=== PATIENT | male | born 1980 | race Caucasian/White ===

== ENCOUNTER 2025-06-04 21:50 | Inpatient (IN) | payer OTHER ==
[~2025-06-04] VITALS: Ht 175.3 cm; Wt 122.0 kg
[2025-06-04 23:06] LABS: PLATELET COUNT (AUTO) 266 K/uL (150-450); RED BLOOD CELL COUNT(AUTO) 3.67 MIL/uL (4.50-5.90); RED CELL DISTRIBUTION WIDTH 15.3 % (11.5-14.5); WHITE BLOOD COUNT (AUTO) 10.7 K/uL (4.5-11.0)
[2025-06-04] MEDS ORDERED: ONDANSETRON HCL 4 MG/2 ML VIAL IVP PRN (23:15)
[2025-06-04 23:16] LABS: CALCIUM, TOTAL 8.5 mg/dL (8.8-10.5); CREATININE 6.01 mg/dL (0.60-1.30); GLOMERULAR FILTR. RATE CALC 10 mL/min (>60); GLUCOSE,RANDOM 92 mg/dL (70-110); SODIUM SERUM 138 mmol/L (136-145); UREA NITROGEN, BLOOD 52 mg/dL (7-18)
[2025-06-04 23:21] LABS: CREATINE KINASE, TOTAL ONLY 187 U/L (39-308)
[2025-06-04 23:25] LABS: TROPONIN I-HIGH SENSITIVITY 51 ng/L (<76)
[2025-06-04] MEDS: METOPROLOL TARTRATE 25 MG TABLET PO SCH (23:41)
[2025-06-05] MEDS: HEPARIN SODIUM,PORCINE 5,000 UNITS/ML VIAL SQ SCH
[2025-06-05 04:15] LABS: APPEARANCE,URINE CLEAR (CLEAR); GLUCOSE, URINE (UA) NEGATIVE (NEGATIVE); LEUKOCYTE ESTERASE ,URINE TRACE (NEGATIVE); NITRATE,URINE NEGATIVE (NEGATIVE); OCCULT BLOOD,URINE SMALL (NEGATIVE); SPECIFIC GRAVITIY, URINE 1.013 (1.003-1.030)
[2025-06-05 04:16] LABS: SULFOSALICYLIC ACID,URINE 2+ (Negative)
[2025-06-05 04:17] LABS: SQUAMOUS EPITHELIAL CELL,UR Few /LPF (None Seen)
[2025-06-05 05:38] LABS: PLATELET COUNT (AUTO) 249 K/uL (150-450); RED BLOOD CELL COUNT(AUTO) 3.45 MIL/uL (4.50-5.90); RED CELL DISTRIBUTION WIDTH 15.2 % (11.5-14.5); WHITE BLOOD COUNT (AUTO) 8.9 K/uL (4.5-11.0)
[2025-06-05 05:47] LABS: CALCIUM, TOTAL 8.3 mg/dL (8.8-10.5); CREATININE 6.05 mg/dL (0.60-1.30); GLOMERULAR FILTR. RATE CALC 10.0 mL/min (>60); GLUCOSE,RANDOM 100.0 mg/dL (70-110); SODIUM SERUM 139.0 mmol/L (136-145); UREA NITROGEN, BLOOD 54.0 mg/dL (7-18)
[2025-06-05] MEDS: DOCUSATE SODIUM 100 MG CAPSULE PO SCH (09:46)
[2025-06-05] MEDS: ACETAMINOPHEN 325 MG TABLET PO PRN (09:49)
[2025-06-05 12:10] VITALS: BP 144/99; PULSE 82; RESP 18; TEMP 98.1; O2SAT 97
[2025-06-05 16:06] VITALS: BP 121/70; PULSE 83; RESP 18; TEMP 98.2; O2SAT 96
[2025-06-05 17:13] VITALS: BP 146/84; PULSE 82; RESP 17; TEMP 98; O2SAT 95
[2025-06-05 19:27] VITALS: BP 133/66; PULSE 89; RESP 18; TEMP 98.1; O2SAT 100
[2025-06-06] VITALS (12 sets, daily range): BP systolic 120–168; BP diastolic 76–114; PULSE 79–101; RESP 17–18; TEMP 98.2–98.5; O2SAT 95–99
[2025-06-06] MEDS: METOPROLOL TARTRATE 25 MG TABLET PO SCH (08:22)
[2025-06-06] MEDS ORDERED: SEVE800T7 PO (13:13)
[2025-06-06] MEDS ORDERED: LOSA-381 PO (13:14)
[2025-06-06] MEDS ORDERED: AMLO10TA55 PO (13:15)
[2025-06-06] MEDS ORDERED: METO50 PO (13:16)
[2025-06-06] MEDS: FOLIC ACID/VIT B COMPLEX AND C TABLET PO SCH (13:30)
== END 2025-06-06 17:43 | DRG 304 ==
LOC: EMS 21:50 → EDH 23:05 → 5S 06-05 12:10 → 6N 06-05 16:22
PROVIDERS: ADMIT Internal Medicine; ATTEND Internal Medicine
PROC: 5A1D70Z Performance of Urinary Filtration, Intermittent, Less than 6 Hours Per Day (ICD-10-PCS; principal; 2025-06-06)
DX: I16.0 Hypertensive urgency (principal); N18.6 End stage renal disease; E66.9 Obesity, unspecified; E87.6 Hypokalemia; D64.9 Anemia, unspecified; R80.9 Proteinuria, unspecified; I12.0 Hypertensive chronic kidney disease with stage 5 chronic kidney disease or end stage renal disease; Z68.39 Body mass index [BMI] 39.0-39.9, adult; Z99.2 Dependence on renal dialysis
CPT/HCPCS: 71045; 80048; 81001; 81002; 82550; 83735; 83880; 84484; 85025; 87081; 87340; 90935; 93005; 96374; 99285; G0378; J0360; J1644; 36415-L1; 36415-TC

== ENCOUNTER 2025-06-08 07:25 | Inpatient (IN) | payer OTHER ==
[~2025-06-08] VITALS: Ht 175.3 cm; Wt 121.0 kg
[2025-06-08] VITALS (11 sets, daily range): BP systolic 136–162; BP diastolic 82–109; PULSE 80–103; RESP 18; TEMP 98.1–98.6; O2SAT 97–100
[~2025-06-08 07:25] MED LIST: AMLO10TA55 PO; LOSA-381 PO; METO50 PO; SEVE800T7 PO
[2025-06-08 09:18] LABS: PLATELET COUNT (AUTO) 266 K/uL (150-450); RED BLOOD CELL COUNT(AUTO) 3.83 MIL/uL (4.50-5.90); RED CELL DISTRIBUTION WIDTH 14.8 % (11.5-14.5); WHITE BLOOD COUNT (AUTO) 9.4 K/uL (4.5-11.0)
[2025-06-08 09:27] LABS: CALCIUM, TOTAL 8.7 mg/dL (8.8-10.5); CREATININE 6.19 mg/dL (0.60-1.30); GLOMERULAR FILTR. RATE CALC 10 mL/min (>60); GLUCOSE,RANDOM 96 mg/dL (70-110); SODIUM SERUM 141 mmol/L (136-145); UREA NITROGEN, BLOOD 43 mg/dL (7-18)
[2025-06-08 09:36] LABS: TROPONIN I-HIGH SENSITIVITY 54 ng/L (<76)
[2025-06-08] MEDS ORDERED: HEPARIN SODIUM,PORCINE 1,000 UNITS/ML VIAL ONE (12:00)
[2025-06-08] MEDS ORDERED: HYDROCODONE/ACETAMINOPHEN 5-325 MG TABLET PO PRN (14:15)
[2025-06-08] MEDS ORDERED: BISACODYL 10 MG RECTAL RECTAL SUPPOSITORY PR PRN (14:15)
[2025-06-08] MEDS ORDERED: ACETAMINOPHEN 325 MG TABLET PO PRN (14:15)
[2025-06-08] MEDS ORDERED: ONDANSETRON HCL 4 MG/2 ML VIAL IVP PRN (14:15)
[2025-06-08] MEDS ORDERED: MORPHINE SULFATE 2 MG/ML SYRINGE IVP PRN (14:15)
[2025-06-08] MEDS ORDERED: MAGNESIUM HYDROXIDE SUSPENSION 30 ML UDCUP PO PRN (14:15)
[2025-06-08] MEDS ORDERED: ZOLPIDEM TARTRATE 5 MG TABLET PO PRN (14:15)
[2025-06-08] MEDS: FOLIC ACID/VIT B COMPLEX AND C TABLET PO SCH (16:43)
[2025-06-08] MEDS: SEVELAMER CARBONATE 800 MG TABLET PO SCH (16:43)
[2025-06-08] MEDS: HEPARIN SODIUM,PORCINE 5,000 UNITS/ML VIAL SQ SCH (16:44)
[2025-06-08] MEDS: METOPROLOL TARTRATE 50 MG TABLET PO SCH (20:44)
[2025-06-08] MEDS: DOCUSATE SODIUM 100 MG CAPSULE PO SCH (20:44)
[2025-06-09 04:30] VITALS: BP 120/82; PULSE 89; RESP 18; TEMP 98.4; O2SAT 97
[2025-06-09 06:13] LABS: PLATELET COUNT (AUTO) 283 K/uL (150-450); RED BLOOD CELL COUNT(AUTO) 3.78 MIL/uL (4.50-5.90); RED CELL DISTRIBUTION WIDTH 15.0 % (11.5-14.5); WHITE BLOOD COUNT (AUTO) 9.5 K/uL (4.5-11.0)
[2025-06-09 06:22] LABS: CALCIUM, TOTAL 8.5 mg/dL (8.8-10.5); CREATININE 5.41 mg/dL (0.60-1.30); GLOMERULAR FILTR. RATE CALC 11.0 mL/min (>60); GLUCOSE,RANDOM 96.0 mg/dL (70-110); SODIUM SERUM 139.0 mmol/L (136-145); UREA NITROGEN, BLOOD 29.0 mg/dL (7-18)
[2025-06-09 08:00] VITALS: BP 118/78; PULSE 90; RESP 18; TEMP 98.2; O2SAT 98
[2025-06-09] MEDS: PANTOPRAZOLE SODIUM 40 MG DR TABLET PO SCH (08:55)
[2025-06-09] MEDS: LOSARTAN POTASSIUM 25 MG TABLET PO SCH (08:55)
[2025-06-09 20:56] VITALS: BP 116/76; PULSE 89; RESP 18; TEMP 98.1; O2SAT 98
[2025-06-10] VITALS (12 sets, daily range): BP systolic 105–123; BP diastolic 59–81; PULSE 79–97; RESP 18; TEMP 97.8–98.8; O2SAT 97–98
[2025-06-10 06:39] LABS: PLATELET COUNT (AUTO) 277 K/uL (150-450); RED BLOOD CELL COUNT(AUTO) 3.64 MIL/uL (4.50-5.90); RED CELL DISTRIBUTION WIDTH 14.8 % (11.5-14.5); WHITE BLOOD COUNT (AUTO) 10.1 K/uL (4.5-11.0)
[2025-06-10 06:47] LABS: CALCIUM, TOTAL 8.4 mg/dL (8.8-10.5); CREATININE 7.34 mg/dL (0.60-1.30); GLOMERULAR FILTR. RATE CALC 8.0 mL/min (>60); GLUCOSE,RANDOM 94.0 mg/dL (70-110); SODIUM SERUM 138.0 mmol/L (136-145); UREA NITROGEN, BLOOD 50.0 mg/dL (7-18)
[2025-06-11 05:21] VITALS: BP 103/74; PULSE 85; RESP 18; TEMP 98.1; O2SAT 99
[2025-06-11 07:30] LABS: PLATELET COUNT (AUTO) 246 K/uL (150-450); RED BLOOD CELL COUNT(AUTO) 3.78 MIL/uL (4.50-5.90); RED CELL DISTRIBUTION WIDTH 14.8 % (11.5-14.5); WHITE BLOOD COUNT (AUTO) 10.6 K/uL (4.5-11.0)
[2025-06-11 07:37] LABS: CALCIUM, TOTAL 8.3 mg/dL (8.8-10.5); CREATININE 6.67 mg/dL (0.60-1.30); GLOMERULAR FILTR. RATE CALC 9.0 mL/min (>60); GLUCOSE,RANDOM 85.0 mg/dL (70-110); SODIUM SERUM 139.0 mmol/L (136-145); UREA NITROGEN, BLOOD 39.0 mg/dL (7-18)
[2025-06-11 08:36] VITALS: BP 100/66; PULSE 80; RESP 18; TEMP 98.1; O2SAT 100
[2025-06-11 11:14] VITALS: BP 108/76; PULSE 80; RESP 18; TEMP 98.6; O2SAT 99
[2025-06-11 16:00] VITALS: BP 114/76; PULSE 81; RESP 18; TEMP 98.9; O2SAT 97
[2025-06-11 20:02] VITALS: BP 136/91; PULSE 87; RESP 18; TEMP 99; O2SAT 98
[2025-06-11] MEDS: METOPROLOL TARTRATE 25 MG TABLET PO SCH (20:46)
[2025-06-12 05:07] VITALS: BP 104/68; PULSE 73; RESP 18; TEMP 98.2; O2SAT 94
[2025-06-12 08:00] VITALS: BP 130/87; PULSE 72; RESP 18; TEMP 98.1; O2SAT 100
[2025-06-12 09:31] VITALS: BP 113/64; PULSE 72; RESP 18; TEMP 98.1; O2SAT 95
[2025-06-12 19:48] VITALS: BP 129/89; PULSE 91; RESP 18; TEMP 98.4; O2SAT 97
[2025-06-13] VITALS (12 sets, daily range): BP systolic 102–128; BP diastolic 56–87; PULSE 43–88; RESP 18–20; TEMP 97.9–98.8; O2SAT 98–100
[2025-06-13] MEDS ORDERED: SODIUM CHLORIDE 0.9% 2,000 ML ONE (15:57)
[2025-06-14 04:34] VITALS: BP 120/79; PULSE 82; RESP 18; TEMP 98.4; O2SAT 99
[2025-06-14 10:09] VITALS: BP 122/78; PULSE 85; RESP 18; TEMP 98.2; O2SAT 100
[2025-06-14 10:39] VITALS: BP 116/71; PULSE 85; RESP 18; O2SAT 99
[2025-06-14 20:33] VITALS: BP 126/83; PULSE 94; RESP 18; TEMP 99.9; O2SAT 98
[2025-06-15] VITALS (12 sets, daily range): BP systolic 113–149; BP diastolic 18–96; PULSE 72–94; RESP 18–20; TEMP 97.9–99; O2SAT 98–99
[2025-06-15 06:44] LABS: PLATELET COUNT (AUTO) 238 K/uL (150-450); RED BLOOD CELL COUNT(AUTO) 3.62 MIL/uL (4.50-5.90); RED CELL DISTRIBUTION WIDTH 14.4 % (11.5-14.5); WHITE BLOOD COUNT (AUTO) 9.4 K/uL (4.5-11.0)
[2025-06-15 07:16] LABS: CALCIUM, TOTAL 8.6 mg/dL (8.8-10.5); CREATININE 7.83 mg/dL (0.60-1.30); GLOMERULAR FILTR. RATE CALC 7.0 mL/min (>60); GLUCOSE,RANDOM 95.0 mg/dL (70-110); SODIUM SERUM 139.0 mmol/L (136-145); UREA NITROGEN, BLOOD 52.0 mg/dL (7-18)
[2025-06-15] MEDS ORDERED: SODIUM CHLORIDE 0.9% 2,000 ML ONE (10:46)
[2025-06-16] VITALS (8 sets, daily range): BP systolic 109–142; BP diastolic 66–83; PULSE 66–86; RESP 18–20; TEMP 97.7–98; O2SAT 99
[2025-06-16] MEDS ORDERED: HEPARIN SODIUM,PORCINE 1,000 UNITS/ML VIAL ONE (17:18)
[2025-06-16] MEDS ORDERED: SODIUM CHLORIDE 0.9% 2,000 ML ONE (17:39)
[2025-06-17] VITALS: BP 121/74; PULSE 80; RESP 18
[2025-06-17 00:30] VITALS: BP 140/89; PULSE 80; RESP 18
[2025-06-17 00:39] VITALS: BP 136/89; PULSE 80; RESP 20; TEMP 98.6; O2SAT 98
[2025-06-17 04:54] VITALS: BP 115/77; PULSE 76; RESP 18; TEMP 98.2; O2SAT 98
[2025-06-17 08:55] VITALS: BP 128/87; PULSE 76; RESP 20; TEMP 98.2; O2SAT 100
[2025-06-17 20:00] VITALS: BP 102/73; PULSE 89; RESP 18; TEMP 98.4; O2SAT 100
[2025-06-18] VITALS (12 sets, daily range): BP systolic 117–135; BP diastolic 66–92; PULSE 74–95; RESP 18–20; TEMP 98–98.8; O2SAT 98–100
[2025-06-18] MEDS ORDERED: SODIUM CHLORIDE 0.9% 1,000 ML ONE (08:47)
[2025-06-19 05:38] VITALS: BP 116/80; PULSE 82; RESP 18; TEMP 97.9; O2SAT 98
[2025-06-19 07:34] VITALS: BP 125/86; PULSE 80; RESP 18; TEMP 98.1; O2SAT 99
[2025-06-19 16:27] VITALS: BP 133/85; PULSE 90; RESP 18; TEMP 98.8; O2SAT 97
[2025-06-19 19:37] VITALS: BP 131/92; PULSE 98; RESP 18; TEMP 98.6; O2SAT 97
[2025-06-20 06:15] VITALS: BP 113/79; PULSE 76; RESP 18; TEMP 97.5; O2SAT 99
[2025-06-20 08:00] VITALS: BP 133/79; PULSE 85; RESP 19; TEMP 97.9; O2SAT 99
[2025-06-20] MEDS ORDERED: HEPARIN SODIUM,PORCINE 1,000 UNITS/ML VIAL IVP ONE (11:23)
[2025-06-20 21:32] VITALS: BP 122/80; PULSE 90; RESP 20; TEMP 98.4; O2SAT 99
[2025-06-21] VITALS (12 sets, daily range): BP systolic 102–132; BP diastolic 64–88; PULSE 60–86; RESP 16–20; TEMP 97.7–98.4; O2SAT 98–100
[2025-06-21] MEDS ORDERED: SODIUM CHLORIDE 0.9% 2,000 ML ONE (06:35)
[2025-06-22 08:00] VITALS: BP 105/78; PULSE 82; RESP 19; TEMP 98.2; O2SAT 97
[2025-06-22 20:09] VITALS: BP 108/67; PULSE 89; RESP 20; TEMP 98.4; O2SAT 99
[2025-06-22] MEDS: LOSARTAN POTASSIUM 25 MG TABLET PO SCH (21:00)
[2025-06-23] VITALS (10 sets, daily range): BP systolic 112–151; BP diastolic 78–107; PULSE 76–88; RESP 18–20; TEMP 97.7–98; O2SAT 100
[2025-06-23] MEDS ORDERED: SODIUM CHLORIDE 0.9% 2,000 ML ONE (06:45)
[2025-06-23] MEDS: HEPARIN SODIUM,PORCINE 1,000 UNITS/ML VIAL IVP ONE (11:06)
[2025-06-23] MEDS ORDERED: AMLO-257 PO (12:32)
[2025-06-23] MEDS ORDERED: FOLI0.8T54 PO (12:50)
[2025-06-23] MEDS ORDERED: LOSA-381 PO (12:54)
[2025-06-23] MEDS ORDERED: PANT-31 PO (12:55)
[2025-06-23] MEDS ORDERED: METO25 PO (12:55)
[2025-06-23] MEDS ORDERED: SEVE800T39 PO (12:56)
== END 2025-06-23 15:40 | DRG 640 ==
LOC: EMS 07:25 → EDH 10:51 → 6S 16:09
PROVIDERS: ADMIT Internal Medicine; ATTEND Internal Medicine
PROC: 5A1D70Z Performance of Urinary Filtration, Intermittent, Less than 6 Hours Per Day (ICD-10-PCS; principal; 2025-06-08)
PROC: 5A1D70Z Performance of Urinary Filtration, Intermittent, Less than 6 Hours Per Day (ICD-10-PCS; 2025-06-10)
PROC: 5A1D70Z Performance of Urinary Filtration, Intermittent, Less than 6 Hours Per Day (ICD-10-PCS; 2025-06-13)
PROC: 5A1D70Z Performance of Urinary Filtration, Intermittent, Less than 6 Hours Per Day (ICD-10-PCS; 2025-06-15)
PROC: 5A1D70Z Performance of Urinary Filtration, Intermittent, Less than 6 Hours Per Day (ICD-10-PCS; 2025-06-16)
PROC: 5A1D70Z Performance of Urinary Filtration, Intermittent, Less than 6 Hours Per Day (ICD-10-PCS; 2025-06-18)
PROC: 5A1D70Z Performance of Urinary Filtration, Intermittent, Less than 6 Hours Per Day (ICD-10-PCS; 2025-06-21)
PROC: 5A1D70Z Performance of Urinary Filtration, Intermittent, Less than 6 Hours Per Day (ICD-10-PCS; 2025-06-23)
DX: E87.70 Fluid overload, unspecified (principal); N18.6 End stage renal disease; I12.0 Hypertensive chronic kidney disease with stage 5 chronic kidney disease or end stage renal disease; I16.0 Hypertensive urgency; D63.1 Anemia in chronic kidney disease; E66.9 Obesity, unspecified; Z68.39 Body mass index [BMI] 39.0-39.9, adult; Z79.899 Other long term (current) drug therapy; Z99.2 Dependence on renal dialysis
CPT/HCPCS: 71045; 80048; 84100; 84484; 85025; 90935; 93005; 99285; J1644; J7030; 36415-L1; 36415-TC

== ENCOUNTER 2025-06-25 06:36 | Inpatient (IN) | payer OTHER ==
[2025-06-25] VITALS (11 sets, daily range): BP systolic 96–119; BP diastolic 56–82; PULSE 66–90; RESP 18; TEMP 98.3; O2SAT 98–99
[~2025-06-25] VITALS: Ht 177.8 cm; Wt 119.0 kg
[~2025-06-25 06:36] MED LIST changes: +AMLO-257 PO; +FOLI0.8T54 PO; +METO25 PO; +PANT-31 PO; +SEVE800T39 PO
[2025-06-25 07:26] LABS: PLATELET COUNT (AUTO) 278 K/uL (150-450); RED BLOOD CELL COUNT(AUTO) 3.88 MIL/uL (4.50-5.90); RED CELL DISTRIBUTION WIDTH 14.0 % (11.5-14.5); WHITE BLOOD COUNT (AUTO) 10.6 K/uL (4.5-11.0)
[2025-06-25 07:34] LABS: CALCIUM, TOTAL 8.6 mg/dL (8.8-10.5); CREATININE 9.48 mg/dL (0.60-1.30); GLOMERULAR FILTR. RATE CALC 6 mL/min (>60); GLUCOSE,RANDOM 88 mg/dL (70-110); SODIUM SERUM 133 mmol/L (136-145); UREA NITROGEN, BLOOD 57 mg/dL (7-18)
[2025-06-25] MEDS ORDERED: GABA-1181 PO (07:37)
[2025-06-25] MEDS ORDERED: QUET25TA PO (07:37)
[2025-06-25] MEDS ORDERED: FURO20TA5 PO (07:37)
[2025-06-25] MEDS ORDERED: DULO60CA73 PO (07:37)
[2025-06-25] MEDS ORDERED: PREG25 PO (07:37)
[2025-06-25] MEDS ORDERED: OXYC10TA59 PO (07:37)
[2025-06-25 07:42] LABS: TROPONIN I-HIGH SENSITIVITY 23 ng/L (<76)
== END 2025-06-25 12:50 | DRG 682 ==
LOC: EMS 06:36 → EDH 08:30 → CMPBEDREQ 14:44
PROVIDERS: ADMIT Hospitalist; ATTEND Hospitalist
PROC: 5A1D70Z Performance of Urinary Filtration, Intermittent, Less than 6 Hours Per Day (ICD-10-PCS; principal; 2025-06-25)
DX: I12.0 Hypertensive chronic kidney disease with stage 5 chronic kidney disease or end stage renal disease (principal); N18.6 End stage renal disease; Z79.899 Other long term (current) drug therapy; Z99.2 Dependence on renal dialysis
CPT/HCPCS: 80048; 84484; 85025; 90935; 99285; G0378